=== PATIENT | female | born 2000 | race Caucasian/White ===

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

== ENCOUNTER 2022-03-01 09:04 | Outpatient (CLI) | payer BC, MEDICAID, SELFPAY ==
--- NOTE | 2022-03-01 09:18 | US_ITS ---
WS: [id number] EARLY OBSTETRICAL ULTRASOUND (<14 WEEKS). HISTORY: PELVIC PAIN IN COMPARISON: None available. Single intrauterine gestational sac is identified. Cardiac activity at 160 BPM. [place]-rump length earl sures 1.7 cm which corresponds to a gestation of 8w1d. Normal-appearing yolk sac and amnion demonstra navjot. Small subchorionic hemorrhage. Hemorrhage measures 10 x 8 x 22 mm. This is along the inferior a nd LEFT lateral gestational sac. Trace free fluid. There is a small amount of fluid along the cervical canal. Normal size ovaries with no mass. Normal vascularity. US/US OB <=14 wk fetus w transvag IMPRESSION: 1. Single intrauterine gestation of 8 weeks 1 day with an EDC of 10/10/2022. 2. Small subchorionic hemorrhage. 3. Normal cardiac activity.
== END 2022-03-01 09:05 | disposition home or self-care (01) ==
LOC: RAD 09:05
PROVIDERS: Visit Provider Family Medicine
DX: O26.899 Other specified pregnancy related conditions, unspecified trimester (principal); R10.2 Pelvic and perineal pain; Z3A.08 8 weeks gestation of pregnancy
CPT/HCPCS: 76801; 76817

== ENCOUNTER 2022-09-26 02:06 | Inpatient (IN) | payer BC, MEDICAID, SELFPAY ==
[2022-09-26] VITALS (80 sets, daily range): BP systolic 106–144; BP diastolic 48–99; PULSE 75–116; RESP 18; TEMP 36.2–36.8; O2SAT 94–100; BMI 41.6
[2022-09-26 02:23] LABS: Basophils % 0.3 %; Eosinophils # 0.1 10^3/uL (0.0-0.8); Eosinophils % 0.8 %; Hematocrit 33.8 % (37.0-47.0); Hemoglobin 10.5 g/dL (11.5-15.3); Lymphocytes # 2.5 10^3/uL (1.5-6.5); Lymphocytes % 19.6 %; Mean Corpuscular HGB Conc 31.1 g/dL (30.0-36.0); Mean Corpuscular Hemoglobin 24.9 pg (28.0-34.0); Mean Corpuscular Volume 80.3 fl (81-99); Mean Platelet Volume 11.3 fL (7.4-10.4); Monocytes # 0.9 10^3/uL (0.2-0.9); Monocytes % 7.4 %; Neutrophils # 9.02 10^3/uL (1.8-8.0); Neutrophils % 71.4 %; Nucleated Red Blood Cells % 0 %; Platelet Count 287 10^3/cmm (130-400); Red Blood Count 4.21 10^6/uL (4.1-5.3); Red Cell Distribution Width 14.5 % (12.1-15.1); White Blood Count 12.6 10^3/uL (4.5-13.0)
[2022-09-26] MEDS: lactated ringers 1,000 ML 999 ML IV (02:24)
--- NOTE | 2022-09-26 02:35 | P.ANESASSM_ITS ---
Documented by User: Amauri Lutz, LAYER OFF 09/26/22 02:44 Pre-Anesthetic Assessment Height/Weight: Height 1.65 m Temp Pulse BP 97.3 F L 116 H 129/75 09/26/22 01:58 09/26/22 01:52 09/26/22 01:52 Preop Diagnosis: Labor Epidural Familial anesthetic complications: none Was Beta Von taken within 24 hours: N/A Was Clonidine taken within 24 hours: N/A Social Tobacco (vape) and No alcohol Exam alert, oriented x 3, clear to auscultation bilaterally and regular rate & rhythm Airway Submandibular: within normal limits Cervical ROM: within normal limits Mallampati: Class III Dentition: full Comments: Comments: Had patient remove tongue ring History/ROS No significant history except as noted and No significant complaints Pulmonary None reported CV/HEM None reported None reported Hepatic None reported GI None reported Metabolic Morbid Obesity Musc/skel None reported 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 Patient states her eyes will roll when this occurs ) Anesthetic Plan ASA status: 2E Anesthesia: Anesthesia Evaluation Risk of > 500 ml blood loss (7ml/kg in children): Yes, adequate IV access and fluids planned Medications/Allergies Home Medications Medication Instructions Recorded Confirmed Last Taken Type 1 tab PO DAILY 12/31/20 12/31/20 12/30/20 10:00 History docusate sodium 100 mg capsule 100 mg PO BID #60 caps 01/27/21 Unknown Rx (DOK) ibuprofen 800 mg tablet 800 mg PO TID #90 tabs 01/27/21 Unknown Rx Allergies Allergy/AdvReac Type Severity Reaction Status Date / Time No Known Allergies Allergy Verified 09/06/19 21:34 Current Medications Generic Name Dose Route Start Last Admin Trade Name Freq PRN Reason Stop Dose Admin Lactated Ringer's 1,000 mls @ 999 mls/hr 09/26/22 02:08 09/26/22 02:24 Lactated Ringers IV 09/26/22 03:08 999 mls/hr .Q1H1M ONE Administration PFSH Anesthesia Social History Smoking and tobacco status: current every day smoker Data Anesthesia 09/26/22 02:14 Short CBC 09/26/22 Range/Units 02:14 WBC 12.6 (4.5-13.0) 10^3/uL Hgb 10.5 L (11.5-15.3) g/dL Hct 33.8 L (37.0-47.0) % MCV 80.3 L (81-99) fl Plt Count 287 (130-400) 10^3/cmm Neut % (Auto) 71.4 % Neut # (Auto) 9.02 H (1.8-8.0) 10^3/uL Cardiac Studies: No Data to Display Documented by User: Lily Spence 09/26/22 03:00 Pre-Anesthetic Assessment Other Pertinent Information Discussed patients NPO time with Dr. Hess and safety of waiting 8 hrs for proper NPO interval to elapse. States that waiting this time would be too high risk of vaginal breech delivery occurring in the interim and that [id number] ratio dictates proceeding with in this situation. Medications/Allergies Home Medications Medication Instructions Recorded Confirmed Last Taken Type 1 tab PO DAILY 12/31/20 12/31/20 12/30/20 10:00 History docusate sodium 100 mg capsule 100 mg PO BID #60 caps 01/27/21 Unknown Rx (DOK) ibuprofen 800 mg tablet 800 mg PO TID #90 tabs 01/27/21 Unknown Rx Allergies Allergy/AdvReac Type Severity Reaction Status Date / Time No Known Allergies Allergy Verified 09/06/19 21:34 [facility], [facility] Anesthesia Social History Smoking and tobacco status: current every day smoker Data Anesthesia 09/26/22 02:14 Cardiac Studies: No Data to Display
[2022-09-26] MEDS: famotidine 20 mg/2 mL INJ IVP (02:45)
[2022-09-26] MEDS: metoclopramide 5 mg/mL SDV 2 mL 10 MG IVP (02:47)
[2022-09-26] MEDS: citric acid-sodium citrate 30 mL UDC PO (02:48)
--- NOTE | 2022-09-26 02:48 | P.HP_ITS ---
Providers/Chief Complaint Admitting Physician: Jason Hess Chief Complaint: Possible ROM HPI VP TREASURER History of Present Illness Antonia Mackay is a 22 year old female 2 para 1-0-0-1 female who is 38 weeks estimated gestational age who presents to the hospital with spontaneous rupture of membranes. Her membranes ruptured just prior to coming to the hospital. Upon arrival her membranes were noted to be grossly ruptured. She was dee about every 3 to 5 minutes as well. She was checked and found to be breech. That was confirmed with an ultrasound done on the floor. Her has been otherwise unremarkable. Her labs were as follows. Her blood type was a positive. Her antibody screen was negative. She failed her 1 hour glucose screen but passed her 3-hour. She was GBS positive. Rubella immune. The remainder of her infectious disease profile was within normal limits. Review of Systems General: Reports: 10 or more systems reviewed and unremarkable except in HPI and below Const: Reports: fatigue; Denies: fever(s) Eyes: Denies: change in vision Card: Denies: chest pain Musc: Reports: back pain Rajendra/Lymph: Denies: easy bruising Medications/Allergies Home Medications Medication Instructions Recorded Confirmed Last Taken Type docusate sodium 100 mg capsule 100 mg PO BID #20 caps 09/27/22 Unknown Rx hydrocodone 5 mg-acetaminophen 325 1 tab PO Q6H PRN Moderate To 09/27/22 Unknown Rx mg tablet Severe Pain #28 tabs ibuprofen 800 mg tablet 800 mg PO TID #45 tabs 09/27/22 Unknown Rx multivitamin no.51-ferrous 1 cap PO BREAKFAST #100 caps 09/27/22 Unknown Rx fumarate 106.5 mg-folic acid 1 mg capsule (-U) Allergies Allergy/AdvReac Type Severity Reaction Status Date / Time No Known Allergies Allergy Verified 09/26/22 05:37 PFSH VP TREASURER PFSH: Social History Smoking and tobacco status: current every day smoker History History History 2 Term 1 0 Miscarriages/Ectopic 0 Living Children 1 Vitals/I&O/Wt Last Vital Signs Temp 97.3 F L 09/26/22 01:58 Pulse 116 H 09/26/22 01:52 BP 129/75 09/26/22 01:52 Physical Exam Const: COMMON NORMALS: patient oriented x3 and alert HENMT: COMMON NORMALS: moist oral mucous membranes HEAD & SCALP: normal to inspection Chest: COMMONS NORMALS: normal inspection of the chest Resp: COMMON NORMALS: clear to auscultation bilaterally AUSCULTATION: clear to auscultation bilaterally Cardio: COMMON NORMALS: regular rate and regular rhythm RATE: regular rate RHYTHM: regular rhythm GI: INSPECTION: Yes normal to inspection and Yes other (Gravid) Extremity: COMMON NORMALS: normal to inspection GENERAL: Yes edema (Trace) Neuro: COMMON NORMALS: patient oriented x3, moves all extremities and no sensory deficits noted SENSORIUM/ORIENTATION: Yes alert Psych: COMMON NORMALS: mental status grossly normal Skin: COMMON NORMALS: no rashes or lesions noted GENERAL SKIN EXAM: no rashes or lesions noted Data 09/26/22 02:14 A&P Assessment and plan (1) 38 weeks gestation of : (2) Breech presentation: We discussed the significance of her breech presentation. We discussed the risks of a section including the risk of bleeding, infection, and damage to intra-abdominal organs. She had no further questions and was agreeable to proceed. Attestations Medical Necessity Statement*: I anticipate routine and post C- section care. Coding Level of Care Code Acute Code for Chg Fwd Diagnoses 38 weeks gestation of Z3A.38 Breech presentation O32.1XX0
--- NOTE | 2022-09-26 04:23 | PM.OP ---
Operative Report Date of procedure: September 26, 2022 Pre-op diagnosis: 22-year-old 2 para 1-0-0-1 at 38 weeks estimated gestational age presenting with spontaneous rupture of membranes and breech presentation Post-op diagnosis: Status post section due to breech presentation Post-op findings: Reji breech presentation Procedure done: Lower transverse section Specimens removed/disposition: 1. Male infant with a weight of 8 pounds 1 ounce and Apgars of 8 and 8 2. Placenta with a three-vessel cord delivered intact Surgeon: Jason Hess Estimated blood loss (mL): 400 Procedure: The patient was brought back to the operating room where she was prepped and draped in usual sterile fashion. Anesthesia was found to be adequate. A lower transverse skin incision was then made with a #10 blade. I then dissected down to the underlying subcutaneous tissue until arriving at the prerectal fascia. The fascia was then nicked with the scalpel bilaterally. The fascial incisions were then carried laterally with Mcdowell scissors. Attention was then turned to the superior aspect of the incision which was grasped with kochers and tented up away from the underlying rectus abdominis muscles. The muscles were then dissected away from the fascia manually, and later with Mcdowell scissors. Attention was then turned to the inferior aspect of the incision, and the fascia was dissected away from the underlying muscle in similar fashion. The rectus abdominis muscles were then spread manually. The peritoneum was entered manually. Excellent visualization of the uterus was noted. A lower transverse uterine incision was then made with a #10 blade. Upon arriving at the intrauterine cavity, the uterine incision was then extended manually. The infant was noted to be in vertex position. The baby was delivered without difficulty. After delivery of the head, the mouth and nose were suctioned at the site of the incision. There was no meconium. There was a nuchal cord x1. The cord was cut and clamped about 30 seconds after delivery. The baby was then handed to the waiting nurse. The placenta was removed intact. The uterus was externalized. The intrauterine cavity was cleansed of any remaining debris. The uterine incision was reapproximated in 2 layers. The first layer was performed with 0 Vicryl in a running locked stitch. The second layer was an imbricating stitch also using 0 Vicryl. The uterus was replaced into the abdomen. The peritoneum was then irrigated with warm saline. I reexamined the uterine incision and found it to to have an area in the central portion of the incision that continued to have some bleeding. 3 xsmeoy-br-psmap stitches were used to maintain excellent hemostasis. The rectus abdominis muscles were then reapproximated using 0 Vicryl in a running stitch. The subcutaneous tissue was reapproximated using 0 Vicryl in a running stitch. The fascia was then reapproximated using 0 Vicryl in running stitch. The skin was reapproximated using 4-0 Vicryl on a Miles needle.. Steri-Strips were placed. A sterile dressing was placed. All counts were correct x2. Both the mother and baby were in stable condition.
--- NOTE | 2022-09-26 04:30 | ANE.PACU2 ---
Inpatient post-anesthesia follow up: Airway intact: Yes Vital signs: Temperature 97.9 F Pulse Rate 89 Respiratory Rate Blood Pressure 117/59 Pulse Oximetry 98 Oxygen Delivery Me thod Room Air Oxygen Flow Rate Fraction of Inspir ed Oxygen Hydration adequate: Yes Nausea and vomiting: No Pain level: 1 Mental status: Baseline
[2022-09-26 08:49] LABS: Amphetamines Screen Urine Negative (Negative); Barbiturates Screen Urine Negative (Negative); Benzodiazepines Screen Urine Negative (Negative); Cocaine Screen Urine Negative (Negative); Opiate Screen Urine Positive (Negative); PCP Screen Urine Negative (Negative); THC Screen Urine Positive (Negative)
[2022-09-26] MEDS: ketorolac 30 mg/mL INJ IVP ×3 (10:12→21:45)
[2022-09-26] MEDS: docusate sodium 100 mg Capsule PO ×2 (10:12→21:45)
[2022-09-26] MEDS: prenatal vitamin Capsule 1 CAP PO (10:12)
--- NOTE | 2022-09-26 10:56 | PC.NURSE ---
Patient up to chair with standby assist, tolerates activity well. Patient cleaned and hospital gown changed. Bed linens changed. EBONI RN
[2022-09-26] MEDS: dextrose 5%-lactated ringers 1,000 ML 125 ML IV (11:18)
--- NOTE | 2022-09-26 12:30 | PC.NURSE ---
Patient up to ambulate OBGYN floor x 1 with standby assist. Patient tolerates activity fair. AR RN
[2022-09-26] MEDS: HYDROcodone-acetaminophen 5-325 mg Tablet PO ×2 (12:48→23:07)
--- NOTE | 2022-09-26 13:27 | NPU.GN ---
Obstetrics/Gynecology Group Topic: General Mood of Group
[2022-09-26 16:58] LABS: Hematocrit 31.8 % (37.0-47.0); Hemoglobin 9.7 g/dL (11.5-15.3); Mean Corpuscular HGB Conc 30.5 g/dL (30.0-36.0); Mean Corpuscular Hemoglobin 24.8 pg (28.0-34.0); Mean Corpuscular Volume 81.3 fl (81-99); Mean Platelet Volume 11.6 fL (7.4-10.4); Platelet Count 231 10^3/cmm (130-400); Red Blood Count 3.91 10^6/uL (4.1-5.3); Red Cell Distribution Width 14.6 % (12.1-15.1); White Blood Count 11.8 10^3/uL (4.5-13.0)
[2022-09-26] MEDS: ferrous sulfate EC 325 mg Tablet PO (21:45)
[2022-09-26] MEDS: simethicone 80 mg Chew PO (21:45)
[2022-09-26] MEDS: lanolin oint 7 gm 1 APPLIC TOPICAL (21:45)
[2022-09-27] MEDS: acetaminophen 325 mg Tablet 650 MG PO (04:17)
[2022-09-27 04:20] VITALS: BP 135/74; PULSE 94; TEMP 36.2
[2022-09-27 04:29] VITALS: RESP 8
[2022-09-27] MEDS: ferrous sulfate EC 325 mg Tablet PO ×2 (07:49→17:57)
[2022-09-27] MEDS: docusate sodium 100 mg Capsule PO ×2 (07:49→17:57)
[2022-09-27] MEDS: prenatal vitamin Capsule 1 CAP PO (07:49)
[2022-09-27] MEDS: HYDROcodone-acetaminophen 5-325 mg Tablet PO ×2 (07:49→17:57)
[2022-09-27] MEDS: ibuprofen 800 mg tablet PO ×2 (10:01→15:52)
[2022-09-27 10:05] VITALS: BP 113/76; PULSE 93
[2022-09-27 17:47] VITALS: BP 123/62; PULSE 98
[2022-09-27 18:00] VITALS: BP 123/62; PULSE 98; RESP 16; TEMP 36.8
--- NOTE | 2022-09-30 11:33 | PM.OBGYDC ---
Discharge Providers [employer]ST[employer] Date of Admission: 09/26/22 02:06 Date of Discharge: 09/27/22 Attending Provider at Admission: Jason Hess MD Attending Provider at Discharge: Jason Hess MD Diagnoses at Discharge Discharge Diagnosis (1) 38 weeks gestation of : Status: Resolved (2) Breech presentation: Status: Resolved (3) Status post : Status: Acute Reason for Visit Reason for Visit: Possible ROM Hospital Course Hospital Course The patient presented to the hospital and was found to be breech presentation with spontaneous rupture membranes. A was performed. There were no complications. Her course was also unremarkable. Her bleeding was within normal limits. She did have some normal pain, but was well controlled prior to discharge. There were no further concerns. Information Peripartum Data: Infant Delivery Method: Physical Exam Narrative: The patient is alert. She appears comfortable. Her heart has a regular rate and rhythm with no murmurs appreciated. Lungs are clear to auscultation bilaterally. Her fundus is firm and below the umbilicus. Urinary Catheter Management: Pimentel Latex: Cath Placed During This Visit: yes Reason for Continuing Indwelling Catheter: Not indwelling catheter Urinary Catheter Date of Insertion: 09/26/22 Urinary Catheter Time of Insertion: 03:10 History History History 2 Term 1 0 Miscarriages/Ectopic 0 Living Children 1 Discharge Data Studies Completed and Pending Laboratory Results WBC 11.8 10^3/uL (4.5-13.0) 09/26/22 16:20 RBC 3.91 10^6/uL (4.1-5.3) L 09/26/22 16:20 Hgb 9.7 g/dL (11.5-15.3) L 09/26/22 16:20 Hct 31.8 % (37.0-47.0) L 09/26/22 16:20 MCV 81.3 fl (81-99) 09/26/22 16:20 MCH 24.8 pg (28.0-34.0) L 09/26/22 16:20 MCHC 30.5 g/dL (30.0-36.0) 09/26/22 16:20 RDW 14.6 % (12.1-15.1) 09/26/22 16:20 Plt Count 231 10^3/cmm (130-400) 09/26/22 16:20 MPV 11.6 fL (7.4-10.4) H 09/26/22 16:20 Neut % (Auto) 71.4 % 09/26/22 02:14 Lymph % (Auto) 19.6 % 09/26/22 02:14 [place] % (Auto) 7.4 % 09/26/22 02:14 Eos % (Auto) 0.8 % 09/26/22 02:14 Baso % (Auto) 0.3 % 09/26/22 02:14 Neut # (Auto) 9.02 10^3/uL (1.8-8.0) H 09/26/22 02:14 Lymph # (Auto) 2.5 10^3/uL (1.5-6.5) 09/26/22 02:14 [place] # (Auto) 0.9 10^3/uL (0.2-0.9) 09/26/22 02:14 Eos # (Auto) 0.1 10^3/uL (0.0-0.8) 09/26/22 02:14 Baso # (Auto) 0.0 10^3/uL (0.0-0.1) 09/26/22 02:14 Nucleated RBC % (auto) 0 % 09/26/22 02:14 Nucleated RBCs # 0.0 /100WBC 09/26/22 02:14 Urine Opiates Screen Positive ng/mL (Negative) H 09/26/22 08:24 Ur Barbiturates Screen Negative ng/mL (Negative) 09/26/22 08:24 Ur Phencyclidine Scrn Negative ng/mL (Negative) 09/26/22 08:24 Ur Amphetamines Screen Negative ng/mL (Negative) 09/26/22 08:24 U Benzodiazepines Scrn Negative ng/mL (Negative) 09/26/22 08:24 Urine Cocaine Screen Negative ng/mL (Negative) 09/26/22 08:24 U Marijuana (THC) Screen Positive ng/mL (Negative) H 09/26/22 08:24 Vitals Last Vital Signs Temp 98.2 F 09/27/22 18:00 Pulse 98 09/27/22 18:00 Resp 16 09/27/22 18:00 BP 123/62 09/27/22 18:00 Pulse Ox 100 09/26/22 21:42 O2 Del Method 09/27/22 04:29 Discharge Plan Discharge Patient Disposition: Home Condition: Stable Prescriptions: New ibuprofen 800 mg Tablet 800 mg PO TID Qty: 45 0RF hydrocodone-acetaminophen 5-325 mg Tablet 1 tab PO Q6H PRN (Reason: Moderate To Severe Pain) Qty: 28 0RF docusate sodium 100 mg Capsule 100 mg PO BID Qty: 20 0RF -U 106.5-1 mg Capsule 1 cap PO BREAKFAST Qty: 100 2RF Discharge Orders: Discharge Order (Routine); Ordered 09/27/22 Ordered By: Jason Hess Referrals: Jason Hess MD [Physician] - 10/03/22 3:15 pm () Discharge Diet: Usual diet Discharge Activity: Limit activity as instructed Patient Instructions: Hydrocodone/Acetaminophen (By mouth) (Vicodin, [place], Lortab), Depression (GEN), Bleeding (GEN), OB - Ana, OB Discharge Report, OB Food/Drug Interaction Guide, OB Home Care Instructions, OB Care at Home, Opioid Safety, OB Home Care, Abnormal Bleeding, Depression Discharge Attestations [employer]ER Time Spent in Discharge Care*: less than 30 min Coding Level of Care Code Acute Code for Chg Fwd Diagnoses 38 weeks gestation of Z3A.38 Breech presentation O32.1XX0 Status post Z98.891
== END 2022-09-27 18:10 | disposition home or self-care (01) | DRG 788 ==
LOC: OPOB 07:01 → OBGYN 07:01
PROVIDERS: Admitting Provider Family Medicine; Visit Provider Family Medicine
PROC: 10D00Z1 Extraction of Products of Conception, Low, Open Approach (ICD-10-PCS; CPT 59514; principal; 2022-09-26 03:00)
DX: O32.1XX0 Maternal care for breech presentation, not applicable or unspecified (principal); Z3A.38 38 weeks gestation of pregnancy; Z37.0 Single live birth; O99.334 Smoking (tobacco) complicating childbirth; F17.290 Nicotine dependence, other tobacco product, uncomplicated; O99.824 Streptococcus B carrier state complicating childbirth; O69.2XX0 Labor and delivery complicated by other cord entanglement, with compression, not applicable or unspecified
CPT/HCPCS: 12345; 36415; 51702; 59025; 59409; 80306; 83986; 85025; 85027; 96374; 96376; 99211; J1885; J2274; J2370; J2590; J2765; J3010; J3490; J7120; J7121

== ENCOUNTER → 2025-07-03 15:29 | Outpatient (BNVA) | payer BC, MEDICAID, SELFPAY | PROVIDERS: Visit Provider Obstetrics & Gynecology | DX: N91.2 Amenorrhea, unspecified (principal); D64.9 Anemia, unspecified | CPT/HCPCS: 80053; 80307; 84443; 84702; 85025 ==